=== PATIENT | male | born 1960 | race Caucasian/White ===

== ENCOUNTER 2017-01-17 10:30 | Inpatient (IN) | payer OTHER ==
--- NOTE | 2016-12-23 13:13 | PAT Medication Instructions ---
Service Date Dec 23, 2016. Current Home Medication List Aspirin (Aspir-81), 1 TAB PO DAILY Cetirizine (Zyrtec), 10 MG PO DAILY Ibuprofen (Ibuprofen), 4 TABS PO Q6H Multivitamin (Multivitamin), 1 TAB PO DAILY Medication Instructions For Your Scheduled Surgery - Hold the following medications 10 days prior to surgery per surgeon's instructions: Ibuprofen (Ibuprofen), 4 TABS PO Q6H - Hold the following medications the morning of surgery: Cetirizine (Zyrtec), 10 MG PO DAILY Multivitamin (Multivitamin), 1 TAB PO DAILY - Take the following medications the morning of surgery with a sip of water OTHERWISE NOTHING TO EAT OR DRINK AFTER MIDNIGHT: Aspirin (Aspir-81), 1 TAB PO DAILY If you have any questions please call us at [phone] or [phone] or [phone]
[2016-12-23 13:36] LABS: BASO % 0.1 %; BASO ABS # 0.01 K/uL (0-0.2); COMPLETE YES; HEMATOCRIT 44.8 % (42-52); IG% 1.6 %; LYMPH % 30.3 %; LYMPH ABS # 2.47 K/uL (1.2-3.4); MEAN CELL VOLUME 89.4 fL (80-100); MEAN CORPUSCULAR HEMOGLOBIN 30.9 pg (25-34); MEAN CORPUSCULAR HGB CONC 34.6 g/dl (32-36); MEAN PLATELET VOLUME 9.8 fL (7.4-10.4); MONO % 5.3 %; NEUT % 62.7 %; PLATELET COUNT 199 K/uL (130-400); RED BLOOD COUNT 5.01 M/uL (4.7-6.1); WHITE BLOOD COUNT 8.15 K/uL (4.8-10.8)
[2016-12-23 13:47] LABS: PARTIAL THROMBOPLASTIN RATIO 1.1; PROTHROMBIN TIME (PATIENT) 10.6 SECONDS (9.0-12.0)
--- NOTE | 2016-12-23 13:48 | DIAGNOSTIC IMAGING REPORT ---
CHEST 2 VIEWS ROUTINE HISTORY: Preop. COMPARISON: None. FINDINGS: Low lung volumes. The lungs are clear. Cardiac silhouette is normal in size. No pleural effusions. No pneumothorax. IMPRESSION: No acute process. Electronically signed by: Denis Cooper M.D. 12/23/2016 1:47 PM Dictated Date/Time: 12/23/2016 1:43 PM
[2016-12-23 14:08] LABS: BLOOD UREA NITROGEN 20 mg/dl (7-18); BUN/CREATININE RATIO 19.8 (10-20); C-REACTIVE PROTEIN 0.37 mg/dl (0-0.29); CALCIUM 9.7 mg/dl (8.5-10.1); CARBON DIOXIDE 27 mmol/L (21-32); CHLORIDE 105 mmol/L (98-107); GLUCOSE 111 mg/dl (70-99); POTASSIUM 3.9 mmol/L (3.5-5.1); SODIUM 141 mmol/L (136-145)
[2016-12-23 16:35] VITALS: BMI 39.0
--- NOTE | 2017-01-10 08:23 | HISTORY & PHYSICAL EXAMINATION ---
DATE OF ADMISSION: 01/17/2017 CHIEF COMPLAINT: Left knee pain after previous high tibial osteotomy. HISTORY OF PRESENT ILLNESS: The patient is a 57-year-old gentleman who is now a little over 2 years out from right partial knee replacement who presents for surgical treatment of his left knee. He has had a long history of left knee problems as well. He had a high tibial osteotomy done by Dr. Sparks about 5 years ago. Really has not helped him too much. He has been treated with steroid shots and viscosupplementation without much relief. Pain has become more debilitating. His pain is constant. The more he walks, the more it hurts. He would like to have his left knee replaced. PAST MEDICAL HISTORY: 1. Sleep apnea with CPAP machine. 2. Obesity with BMI of 39. 3. Arthritis. PAST SURGICAL HISTORY: Include: 1. High tibial osteotomy 5 years ago. 2. Vasectomy. 3. Tonsillectomy. 4. Right partial knee replacement 2 years ago on 10/04/2016. ALLERGIES: None. CURRENT MEDICINES: Include: 1. Aspirin 81 mg a day. 2. Ibuprofen. 3. Zyrtec. 4. Vitamin C supplement. SOCIAL HISTORY: A 57-year-old male. 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 He is . Two drinks per week. He does not smoke. FAMILY HISTORY: Significant for heart disease and diabetes. REVIEW OF SYSTEMS: Negative for diabetes, neurologic problems, vascular problems, bleeding disorders. Denies any chest pain, no shortness of breath. No history of DVT or PE. PHYSICAL EXAMINATION: GENERAL: Physical examination reveals a healthy, pleasant, middle-aged male. He looks to be in good health. HEAD, EYES, EARS, NOSE, AND THROAT EXAMINATION: Benign. NECK: Supple. No lymphadenopathy. LUNGS: Clear to auscultation. HEART: Regular rate and rhythm. ABDOMEN: Soft, nontender, nondistended. EXTREMITY EXAMINATION: Grossly neurovascularly intact except as follows: Examination of the left knee reveals patient walks independently. He does limp on the left side. He has got a well-healed incision on the medial side of his knee. He has got some bony hypertrophy medially. Range of motion is 5-120. Good straight leg raise. No pain with hip motion. X-RAYS: X-rays of the left knee were reviewed. It shows advanced left knee medial compartment DJD. He has got a high tibial osteotomy with a medial plate which is well healed. ASSESSMENT: A 57-year-old gentleman a little over 2 years out from a right partial knee replacement with advanced left knee degenerative joint disease after previous high tibial osteotomy. He has failed conservative treatment and would like to have his left knee replaced. PLAN: We are going to take him to the operating room and do a left total knee replacement. We will have to do some hardware removal from his high tibial osteotomy. The risks and benefits of this procedure were explained to the patient including but not limited to DVT, PE, , infection, neurological injury, vascular injury, bleeding problem, pain, limited range of motion, stiffness, failure to relieve his symptoms, incomplete relief of symptoms, need for further surgery in the future, fracture, leg length inequality, nerve palsy, persistent pain, etc. The patient understands and desires to proceed. Informed consent was obtained. We will have to have universal hardware removal tray available. Will likely put some vancomycin in the cement due to his previous surgeries. He is planning to be discharged to home using [facility] home health program. I will see him back 2 weeks postop.
[2017-01-17] VITALS (7 sets, daily range): BP systolic 104–155; BP diastolic 64–95; PULSE 66–84; TEMP 36.5–37; O2SAT 95–99; Ht 182.9 cm; Wt 130.4 kg
[~2017-01-17] VITALS: Ht 182.9 cm; Wt 130.4 kg
[~2017-01-17 10:30] MED LIST: ACETAMINOPHEN 500 MG TAB PO SCH; ASPI-232 PO; ATROPINE SULFATE 0.1 MG/ML 5ML SYR IV PRN; BUPIVACAINE 0.25% 30 ML VIAL ONE; BUPIVACAINE 0.5 % 5 MG/1 ML PF 10ML VIAL ONE; BUPIVACAINE LIPOSOME 266 MG, BUPIVACAINE/EPINEPHRINE INJ 50 ML, SODIUM CHLORIDE 0.9% PF... INFIL SCH; CEFAZOLIN 3000 MG/65 ML D5W 65 ML IV SCH; CETI10TA84 PO; EpHEDrine SULFATE INJ 50 MG/ML AMP IV PRN; FAMOTIDINE 20 MG TAB PO SCH; GABAPENTIN 300 MG CAP PO SCH; HYDROmorphone INJ 2 MG/ML SYR/VIAL IV PRN; IBUP1CAP9 PO; LACTATED RINGER'S 1000ML 1,000 ML IV SCH; LACTATED RINGER'S 1000ML IV SCH; LACTATED RINGER'S 500 ML IV SCH; METOCLOPRAMIDE HCL 10 MG TAB PO SCH; MULT-506 PO; ONDANSETRON INJ 2 MG/ML 2 ML VIAL IV PRN; PHENYLEPHRINE 100MCG/ML 5ML SYR IV PRN; SCOPOLAMINE 1.5 MG TDSY TD SCH; TRANEXAMIC ACID INJ 1,000 MG in SODIUM CHLORIDE 0.9% 100ML 100 ML IV SCH
--- NOTE | 2017-01-17 10:52 | History & Physical Bridge Note ---
H&P Re-Evaluation Bridge Note: I have examined the patient, reviewed the History & Physical and in the interval since the performance of the History & Physical I have noted the following changes of clinical significance: No changes noted
[2017-01-17] MEDS ORDERED: MIDAZOLAM HCL 1 MG/ML 2ML VIAL ONE ×2 (12:11)
[2017-01-17] MEDS ORDERED: ONDANSETRON INJ 2 MG/ML 2 ML VIAL ONE (12:11)
[2017-01-17] MEDS ORDERED: PROPOFOL IV EMULSION 10 MG/ML 20 ML VIAL IV ONE ×3 (12:11→14:29)
[2017-01-17] MEDS ORDERED: BUPIVACAINE LIPOSOME 1/3% 266 MG/20 ML VIAL INFIL ONE (12:53)
[2017-01-17] MEDS ORDERED: BACITRACIN 50000 UNIT VIAL ONE (12:53)
[2017-01-17] MEDS ORDERED: SODIUM CHLORIDE 0.9% PF 50 ML VIAL ONE (12:53)
[2017-01-17] MEDS ORDERED: BUPIVACAINE/EPINEPHRINE 0.25% 1:200,000 30 ML VIAL ONE (12:53)
[2017-01-17] MEDS ORDERED: VANCOMYCIN HCL 1000MG/20ML VIAL ONE (12:54)
[2017-01-17] MEDS ORDERED: PHENYLEPHRINE 100MCG/ML 5ML SYR ONE (13:35)
--- NOTE | 2017-01-17 15:05 | [facility] Post Operative Brief Note ---
Immediate Operative Summary Operative Date Jan 17, 2017. Pre-Operative Diagnosis Left knee DJD after previous high tibial osteotomy. Post-Operative Diagnosis Same as preoperative Procedure(s) Performed Left Total Knee Arthroplasty with Harware Removal Surgeon Edger Liner Surgeon(s) Smooth Ramesh PA-C Estimated Blood Loss 50ml Findings Left Knee DJD Fluids (cc crystalloids) 2000 cc Specimens A. Left Knee Bone and Tissue B. Removed Hardware Left Knee (screws x2) Drains None Anesthesia Spinal Complication(s) None Disposition Recovery Room / PACU
[2017-01-17] MEDS ORDERED: ZOLPIDEM TARTRATE 5 MG TAB PO PRN (15:15)
[2017-01-17] MEDS ORDERED: OXYCODONE HCL IR 5 MG TAB (IMMEDIATE RELEASE) PO PRN (15:15)
[2017-01-17] MEDS ORDERED: DiphenhydrAMINE HCL 50 MG/ML VIAL IV PRN (15:15)
[2017-01-17] MEDS ORDERED: MoRPHine SULFATE 2 MG/ML CARP IV PRN (15:15)
[2017-01-17] MEDS ORDERED: METOCLOPRAMIDE HCL INJ 5 MG/ML 2 ML VIAL IV PRN (15:15)
[2017-01-17] MEDS ORDERED: ALUMINUM/MAGNESIUM/SIMETH (MAALOX MAX) 30 ML UDC PO PRN (15:15)
[2017-01-17] MEDS ORDERED: SILVER SULFADIAZINE 1% CR 50 GM JAR EXT PRN (15:15)
[2017-01-17] MEDS ORDERED: BISACODYL 10 MG SUPP PR PRN (15:15)
[2017-01-17] MEDS ORDERED: TAMSULOSIN HCL 0.4 MG CAP PO PRN (15:15)
[2017-01-17] MEDS ORDERED: ONDANSETRON INJ 2 MG/ML 2 ML VIAL IV PRN (15:15)
[2017-01-17] MEDS ORDERED: MAGNESIUM HYDROXIDE SUSP 30 ML UDC PO PRN (15:15)
--- NOTE | 2017-01-17 15:30 | Anesthesiology Progress Note ---
Anesthesia Post Op Note Date & Time Jan 17, 2017 at 15:30 Vital Signs Pain Intensity: 0 Vital Signs Past 12 Hours Date Time Temp Pulse Resp B/P Pulse Ox O2 Delivery O2 Flow Rate FiO2 01/17/17 15:25 66 16 115/66 98 Nasal Cannula 2 01/17/17 15:15 82 16 136/65 97 Mask 10 01/17/17 15:09 36.4 81 16 145/80 97 Mask 10 01/17/17 11:16 36.7 74 18 155/95 95 Room Air Notes Mental Status: alert / awake / arousable, participated in evaluation Pt Amnestic to Procedure: Yes Nausea / Vomiting: adequately controlled Pain: adequately controlled Airway Patency, RR, SpO2: stable & adequate BP & HR: stable & adequate Hydration State: stable & adequate Anesthetic Complications: no major complications apparent
--- NOTE | 2017-01-17 15:34 | DIAGNOSTIC IMAGING REPORT ---
LEFT KNEE 1 OR 2 VIEWS ROUTINE CLINICAL HISTORY: Arthroplasty. COMPARISON: Knee radiographs October 10, 2016. FINDINGS: Alignment of the left knee arthroplasty is anatomic. There is no fracture or unexpected radiopaque foreign body. Surgical hardware from prior procedure within the medial aspect of the proximal left tibia is intact and unchanged. Skin mary are present. IMPRESSION: Expected findings following left knee arthroplasty. Electronically signed by: Jerry Grimes M.D. 01/17/2017 3:32 PM Dictated Date/Time: 01/17/2017 3:27 PM
--- NOTE | 2017-01-17 15:44 | OPERATIVE REPORT ---
DATE OF OPERATION: 01/17/2017 PREOPERATIVE DIAGNOSIS: Left knee degenerative joint disease after previous high tibial osteotomy. POSTOPERATIVE DIAGNOSIS: Same. PROCEDURE PERFORMED: 1. Left cemented posterior stabilized total knee arthroplasty. 2. Left knee hardware removal. SURGEON: Moses Wong M.D. PIPE ORGAN MECHANIC APPRENTICE: Antonio Ramesh PA-C. COMPLICATIONS: None. ESTIMATED BLOOD LOSS: 50 mL. FLUID REPLACEMENT: 2000 mL crystalloid fluid replacement. TOURNIQUET TIME: 69 minutes at 300 mmHg. ANESTHETIC: Spinal with adductor canal block. DRAINS: None. SPECIMENS: 1. Left knee sent for pathology. 2. Hardware left tibia. OPERATIVE INDICATIONS: The patient is a 57-year-old gentleman who is a little over 5 years out from a high tibial osteotomy done by Dr. Sparks. He really did not get much relief from this. We had done a partial knee replacement on him several years ago and he has done well from that. Over the past several years, he has developed increased pain and progressive discomfort in his left knee. X-rays revealed advanced arthritis. The patient elects to proceed with operative treatment. In order to do a knee replacement we did have to remove some of the hardware around his proximal tibia. OPERATIVE FINDINGS: Operative findings revealed advanced left knee DJD. He had grade 4 [id number] disease in all 3 compartments. Moderate size effusion. OPERATIVE IMPLANTS: Operative implants consisted of: 1. A Biomet Vanguard size 70 left posterior stabilized femoral component. 2. Biomet size 79 tibial tray. 3. A 12 mm posterior stabilized polyethylene insert. 4. A 34 x 8.5 all poly patella. OPERATIVE PROCEDURE: The patient taken to the operating room, identified and placed on operative table in supine position. All contact areas were appropriately padded. IV antibiotics were provided by the anesthesia team. A spinal anesthetic and adductor canal block had been provided in the holding area. Wilkins catheter was placed in sterile fashion. Left thigh tourniquet was then placed and left lower extremity was then prepped and draped in the usual sterile fashion. Left leg was elevated and exsanguinated with Esmarch and tourniquet was placed at 300 mmHg. An anterior approach of the left knee was then performed using a longitudinal incision centered over the patella and extending distally and using the previously made incision for the high tibial osteotomy. Sharp dissection was carried down through the subcutaneous tissues down to the level of the extensor mechanism. A medial parapatellar arthrotomy incision was made. Some subperiosteal dissection was carried out medially. We did strip the periosteum and soft tissues off the plate. I then used the screwdriver to remove the 2 proximal screws from the plate. The fat pad was then resected. The patella was everted and knee was flexed. The osteophytes were taken off the distal femur. The ACL and PCL were then released from the distal femur and the tibia subluxated anteriorly. The external tibial alignment jig was then placed in the anterior face of the tibia and adjusted 14 mm medially. Proximal tibial cut was made to remove about 3-4 mm of bone from the medial side. The tibia was then sized to a size 79. Attention was then drawn to the femur. The distal femur was entered with a sharp drill bit. Intramedullary canal was suctioned. A left 5 degree valgus cutting guide was placed. Distal femoral cutting block was pinned in place. Distal femoral cut was made to take an additional 3 mm of bone off the distal femur. The femur was then sized to a size 70. We did downsize this slightly. The AP cutting block was pinned parallel to the epicondylar axis, which was 5 degrees of external rotation. The anterior cut, anterior chamfer, posterior cut, posterior chamfer cuts were made. Box cutting guide was placed and adjusted slightly lateral and the box cut was made. The knee was flexed. The remnants of the medial and lateral menisci were excised. The osteophytes were taken off the posterior aspect of the femur. A trial femoral component was placed. Tibial tray was pinned in maximum external rotation and drill and stem punch were used to create defect in proximal tibia for the tibial tray. The knee was then trialed and the 12 mm insert fit most appropriately. There was just a little bit of laxity from the medial side, but I elected to accept this and was likely related to his previous deformity correction. Attention was then drawn to the patella. The patella was cleaned of all soft tissues. Patella thickness measured 24 mm in thickness and was cut down to 14. It was sized to a size 34 patella. Lug holes were drilled for a 34 patella. Lateral osteophyte was removed. Patellar button was placed. Knee was taken through range of motion and the patella tracked nicely with no thumbs test. Attention was then drawn toward placement of the permanent components. All trial components were removed. A bone plug was placed in the distal femur to limit blood loss. A double batch of Palacos G cement was mixed. I did an additional gram of vancomycin to the antibiotics due to his previous surgery. A left size 70 posterior stabilized femoral component, size 79 tibial tray, a 12 mm posterior stabilized polyethylene insert, and a 34 x 8.5 all poly patella then cemented in place. Knee was brought out into full extension until cement hardened. A final cement check was then performed. Pericapsular tissues were injected with 100 mL of a combination of 20 mL of Exparel, 30 mL of normal saline, 50 mL of 0.25% Marcaine with epinephrine. The patient did receive 1 gram of tranexamic acid. The tourniquet was then let down for final tourniquet time of 69 minutes. Hemostasis was assured with use of electrocautery. The extensor mechanism was then closed with a combination of #1 PDS suture and #1 Vicryl suture in a wxanyo-di-eykww fashion. Extensor mechanism was checked and found to be intact. The subcutaneous tissues were then closed with 2-0 Dexon suture in a buried interrupted fashion. Skin was closed skin mary. Leg was then cleaned and dried and a sterile dressing of Xeroform, 4 x 4, sterile cast padding and Heriberto bandage were applied. The patient then transferred to the recovery room in stable condition. The patient tolerated the procedure with no complications. All needle and sponge counts were correct at the end of the operation. I attest to the content of the Intraoperative Record and any orders documented therein. Any exceptions are noted below. JOE
[2017-01-17] MEDS: CHECK SCOPOLAMINE PATCH PLACEMENT SCH ×2 (16:39→23:46)
[2017-01-17] MEDS: D5W AND 1/2NSS + 20MEQ KCL 1,000 ML IV SCH ×2 (16:39→23:46)
[2017-01-17] MEDS ORDERED: INFLUENZA VIRUS QUAD VACCINE 0.5 ML SYR IM. ONE (17:45)
[2017-01-17] MEDS ORDERED: INFLUENZA ADMINISTRATION CHARGE ONE (17:45)
[2017-01-17] MEDS: FERROUS GLUCONATE 324 MG TAB PO SCH (18:03)
[2017-01-17] MEDS: KETOROLAC TROMETHAMINE 30 MG/ML VIAL IV. SCH ×2 (18:04→23:46)
[2017-01-17] MEDS: CEFAZOLIN IV 2,000 MG in DEXTROSE 5% 50ML 50 ML IV SCH (19:59)
[2017-01-17] MEDS: ACETAMINOPHEN 500 MG TAB PO SCH (19:59)
[2017-01-17] MEDS ORDERED: TRANEXAMIC ACID INJ 1,000 MG in SODIUM CHLORIDE 0.9% 100ML 100 ML IV SCH (21:00)
[2017-01-17] MEDS: ASPIRIN 325 MG ECTAB PO SCH (21:10)
[2017-01-17] MEDS: DOCUSATE SODIUM 100 MG CAP PO SCH (21:11)
[2017-01-17] MEDS: TAPENTADOL ER 50 MG TABCR PO SCH (21:14)
[2017-01-18 03:25] VITALS: BP 104/70; PULSE 72; TEMP 36.7; O2SAT 97
[2017-01-18] MEDS: CEFAZOLIN IV 2,000 MG in DEXTROSE 5% 50ML 50 ML IV SCH (04:50)
[2017-01-18] MEDS: D5W AND 1/2NSS + 20MEQ KCL 1,000 ML IV SCH ×2 (06:07→13:01)
[2017-01-18 06:11] LABS: HEMATOCRIT 40.5 % (42-52); MEAN CELL VOLUME 91.8 fL (80-100); MEAN CORPUSCULAR HEMOGLOBIN 31.5 pg (25-34); MEAN CORPUSCULAR HGB CONC 34.3 g/dl (32-36); MEAN PLATELET VOLUME 10.6 fL (7.4-10.4); PLATELET COUNT 173 K/uL (130-400); RED BLOOD COUNT 4.41 M/uL (4.7-6.1); WHITE BLOOD COUNT 12.99 K/uL (4.8-10.8)
[2017-01-18] MEDS: ACETAMINOPHEN 500 MG TAB PO SCH ×3 (06:23→21:38)
[2017-01-18] MEDS: KETOROLAC TROMETHAMINE 30 MG/ML VIAL IV. SCH ×4 (06:23→23:00)
[2017-01-18 06:47] LABS: BUN/CREATININE RATIO 11.2 (10-20); CALCIUM 8.6 mg/dl (8.5-10.1); CREATININE 1.2 mg/dl (0.60-1.40); POTASSIUM 4.1 mmol/L (3.5-5.1)
[2017-01-18] MEDS: CHECK SCOPOLAMINE PATCH PLACEMENT SCH ×3 (08:00→22:07)
[2017-01-18 08:04] VITALS: BP 107/71; PULSE 81; TEMP 36.9; O2SAT 94
[2017-01-18] MEDS ORDERED: MORP15TA19 PO (08:35)
[2017-01-18] MEDS ORDERED: OXYC-57 PO (08:35)
[2017-01-18] MEDS ORDERED: ASPEC325 PO (08:35)
[2017-01-18] MEDS: ASPIRIN 325 MG ECTAB PO SCH ×2 (08:49→20:25)
[2017-01-18] MEDS: FERROUS GLUCONATE 324 MG TAB PO SCH ×3 (08:49→18:17)
[2017-01-18] MEDS: DOCUSATE SODIUM 100 MG CAP PO SCH ×2 (08:49→20:25)
[2017-01-18] MEDS: MULTIVITAMIN TAB PO SCH (08:50)
[2017-01-18] MEDS: TAPENTADOL ER 50 MG TABCR PO SCH ×2 (08:50→20:26)
[2017-01-18] MEDS: PANTOprazole SOD 40 MG TAB PO SCH (08:51)
[2017-01-18] MEDS: CETIRIZINE HCL 10 MG TAB PO SCH (08:51)
[2017-01-18] MEDS ORDERED: MULTIVITAMIN TAB PO SCH (09:00)
--- NOTE | 2017-01-18 09:46 | PROGRESS NOTE ---
DATE: 01/18/2017 SUBJECTIVE: A 57-year-old gentleman postop day #1 from a left knee hardware removal and total knee replacement. He is doing well. Pain is controlled. Did have a pretty good night. No chest pain or shortness of breath. Not feeling dizzy or lightheaded. OBJECTIVE: VITAL SIGNS: Temperature 36.7. Vital signs stable. GENERAL: Reveals a healthy, pleasant, middle-aged male. He is lying in bed, looks comfortable. LUNGS: Clear to auscultation. HEART: Regular rate and rhythm. ABDOMEN: Soft, nontender, nondistended. EXTREMITIES: Grossly neurovascularly intact except as follows: Examination of the left lower extremity reveals the dressing in place. It has been reenforced. No obvious blood visible. He can dorsiflex and plantarflex his foot appropriately. He is neurologically intact. LABORATORY DATA: Hemoglobin 13.9, hematocrit 40.5. White cell count 4.99. Electrolytes are stable. ASSESSMENT: A 57-year-old gentleman postop day #1 from a left knee replacement and hardware removal, doing well. Pain is controlled. He is neurologically intact. PLAN: 1. DVT prophylaxis including thigh-high TEDs, SCDs, and aspirin twice a day. 2. PT/OT. Weightbearing as tolerated. Left total knee protocol. 3. Pain control. Doing well with current pain regimen. 4. Disposition: Plan to discharge to home with some home health, likely once adequately recovered.
[2017-01-18 11:29] VITALS: BP 120/75; PULSE 81; TEMP 36.9; O2SAT 98
[2017-01-18 15:35] VITALS: BP 133/76; PULSE 107; TEMP 36.9; O2SAT 96
[2017-01-18 23:20] VITALS: BP 131/80; PULSE 93; TEMP 37.4; O2SAT 95
[2017-01-19] MEDS: KETOROLAC TROMETHAMINE 30 MG/ML VIAL IV. SCH (06:02)
[2017-01-19] MEDS: ACETAMINOPHEN 500 MG TAB PO SCH (06:02)
[2017-01-19 06:56] VITALS: BP 121/81; PULSE 69; TEMP 36.6; O2SAT 100
--- NOTE | 2017-01-19 08:01 | Discharge Instructions ---
Discharge Instructions Date of Service Jan 19, 2017. Admission Reason for Admission: Left Knee Degenerative Joint Disease; Painful Hard Discharge Discharge Diagnosis / Problem: Left Knee Replacement Discharge Goals Goal(s): Decrease discomfort, Improve function, Increase independence, Improve disease control, Therapeutic intervention Activity Recommendations Activity Limitations: per Instructions/Follow-up section Weightbearing Status: Left weightbearing . Instructions / Follow-Up Instructions / Follow-Up ACTIVITY RECOMMENDATIONS: Physical Therapy: * You will go to physical therapy three times each week for four to six weeks after your surgery in order to regain your knee range of motion and to retrain your knee to work properly. * It is just as important to make sure you are getting your knee perfectly straight as it is to regain your knee bend. * Taking a pain pill an hour before therapy can help you have a more productive and comfortable therapy session. Home Exercise: * You were shown a series of exercises (heel props, heel slides, etc.) in the hospital. Do these exercises three to four times each day including the exercises you were shown in physical therapy. Walking: * Get up and walk several times each day. For the first four weeks, try not to stand or walk for more than one hour at a time. If you do stand or walk for more than one hour, you will not hurt anything, but your knee and leg will likely swell. * As you feel comfortable, you may change from the walker or crutches to a cane and then to independent walking. MEDICATIONS: New Medicine: * You will likely be taking one or more of these medications: 1. MS Contin - A long-acting pain medication. Take 1 tablet twice a day for the first ten days to decrease your baseline level of pain. 2. Percocet - A quick and shorter-acting pain medication. Take one to two tablets every four to six hours to lessen your pain. 3. Aspirin - Thins your blood to lessen the chance of forming a blood clot. * The most common side effects of pain medicine and iron are nausea and constipation. If nausea or constipation is too much of a problem or if you have any questions about your new medicines or doses, call [facility] at [phone]. We will try to help you manage these issues. VERY IMPORTANT TO READ AND REVIEW" Pain: * The immediate post-operative period after knee replacement surgery is often quite painful. * You are given a prescription for pain medicine. You should take it, as directed, when you need it, especially before physical therapy and before going to bed. Pain that interferes with sleep is very common and can last several months. * You will likely need pain medicine for the first four to six weeks. It will not stop all of the pain. The pain will lessen and as you feel better, you may change to milder pain medicine such as Tylenol. * The most common side effects of pain medicine are nausea and constipation, so don't take more than you need. SPECIAL CARE INSTRUCTIONS: TEDs/Elastic Stockings: * The white elastic stockings help limit swelling and prevent blood clots from forming in your legs. The more you wear them, the more they work. * Wear them for six weeks after knee replacement surgery and four weeks after partial knee replacement. Prevention of Infection: * Take antibiotics one hour before any dental cleaning, dental work, urological procedure, gastrointestinal procedure or any invasive surgery in order to prevent your new joint from getting infected. * You may get the antibiotics from the doctor performing the procedure or you may call our office at before and we will call in a prescription to the pharmacy of your choice. Things to Watch For: * Drainage from the incision site that occurs more than one week after your surgery. * Severely increased knee/leg pain or swelling. * Increased redness at the incision site. * Fever above 102 degrees Fahrenheit. * Unusual chest pain or shortness of breath. * Unusual pain or burning with urination. Call [facility] at with any of the above problems or if you have any questions about your medicines or recovery. FOLLOW UP VISIT: Make an appointment to see your doctor for approximately two weeks after surgery for a progress check and staple removal by calling the office at . Current Hospital Diet Patient's current hospital diet: Regular Diet Discharge Diet Recommended Diet: Regular Diet Procedures Procedures Performed: Left Total Knee Arthroplasty with Harware Removal Pending Studies Studies pending at discharge: no Medical Emergencies . Who to Call and When: Medical Emergencies: If at any time you feel your situation is an emergency, please call [phone] immediately. . Non-Emergent Contact Non-Emergency issues call your: Surgeon . "Provider Documentation" section prepared by Moses Wong. VTE Core Measure Inpt VTE Proph given/why not?: Other Anticoagulation, T.E.D. Stockings, SCD's
[2017-01-19] MEDS: FERROUS GLUCONATE 324 MG TAB PO SCH (08:21)
[2017-01-19] MEDS: TAPENTADOL ER 50 MG TABCR PO SCH (08:21)
[2017-01-19] MEDS: ASPIRIN 325 MG ECTAB PO SCH (08:22)
[2017-01-19] MEDS: DOCUSATE SODIUM 100 MG CAP PO SCH (08:22)
[2017-01-19] MEDS: PANTOprazole SOD 40 MG TAB PO SCH (08:23)
[2017-01-19] MEDS: MULTIVITAMIN TAB PO SCH (08:23)
[2017-01-19] MEDS: CETIRIZINE HCL 10 MG TAB PO SCH (08:23)
--- NOTE | 2017-01-19 08:28 | PROGRESS NOTE ---
DATE: 01/19/2017 SUBJECTIVE: A 57-year-old gentleman postop day #2 from a left total knee replacement and hardware removal. He is doing pretty well. A little bit stiffer this morning. Pain is controlled. No chest pain or shortness of breath. OBJECTIVE: VITAL SIGNS: Temperature 36.6. Vital signs are stable. GENERAL: Reveals a healthy, pleasant, middle-aged male. I had to awake him this morning. LUNGS: Clear to auscultation. HEART: Regular rate and rhythm. ABDOMEN: Soft, nontender and nondistended. EXTREMITIES: Grossly neurovascularly intact except as follows: Examination of the left lower extremity reveals the leg to be well-aligned. Dressing is clean, dry and intact. He can dorsiflex and plantarflex his foot appropriately. He is neurologically intact. ASSESSMENT: A 57-year-old gentleman postop day #2 from a left knee hardware removal and total knee replacement, doing well. The pain is controlled. PLAN: 1. DVT prophylaxis including thigh TEDs, SCDs and aspirin twice a day. 2. PT/OT. Weightbearing as tolerated. Left total knee protocol. 3. Pain control, doing pretty well with current pain regimen. 4. Disposition: Plan to discharge to home after therapy today. JOE
[2017-01-19 08:53] VITALS: BP 121/81; PULSE 69; TEMP 36.6; O2SAT 100
--- NOTE | 2017-01-24 17:26 | DISCHARGE SUMMARY ---
ADMITTING PHYSICIAN AND SURGEON: Dr. Wong. ADMITTING DIAGNOSIS: Left knee degenerative joint disease after previous high tibial osteotomy. PROCEDURES PERFORMED: 1. Left total knee arthroplasty. 2. Left knee hardware removal. SECONDARY DIAGNOSES: Sleep apnea, obesity, arthritis. CONSULTS: None obtained. HISTORY AND PHYSICAL EXAMINATION: Well documented in the patient's chart. HOSPITAL COURSE: The patient was admitted on 01/17/2017 underwent hardware removal and total knee arthroplasty, tolerated the procedure well. There were no complications. He was transferred to the PACU postoperatively and later to the orthopedic floor for further care. He was given Ancef for antibiotic prophylaxis, CANDACE stockings, SCDs and aspirin for DVT prophylaxis. Hemoglobin, hematocrit and vital signs were monitored during his hospital stay and remained stable, did not require any blood transfusions. There were no complications. By postoperative day 2, he was tolerating a general diet, pain was controlled with oral pain medicine. He was participating in physical therapy and had no signs or symptoms of deep vein thrombosis. On postop day 2, he was discharged home in good condition, set up with home health services. He was given printed discharge instructions including new prescriptions for aspirin 325 mg b.i.d., MS Contin and Percocet. Continue his home medications with the exception of his home dose of aspirin which was changed. Continue physical therapy, weightbearing as tolerated, CANDACE stockings and follow up in 10-12 days or sooner if there are problems or concerns.
== END 2017-01-19 11:55 | disposition home or self-care (01) | DRG 470 ==
LOC: ENRESERVTM → ENRESERVDT → C.ACU 10:30 → C.3E 10:53
PROVIDERS: ADMIT Orthopaedic Surgery Sports Medicine; ATTEND Orthopaedic Surgery Sports Medicine
PROC: 0SRD0J9 Replacement of Left Knee Joint with Synthetic Substitute, Cemented, Open Approach (ICD-10-PCS; principal; 2017-01-17 12:30)
PROC: 0SPD04Z Removal of Internal Fixation Device from Left Knee Joint, Open Approach (ICD-10-PCS; principal; 2017-01-17 12:30)
DX: M17.12 Unilateral primary osteoarthritis, left knee (principal); G47.30 Sleep apnea, unspecified; E66.9 Obesity, unspecified; Z68.39 Body mass index [BMI] 39.0-39.9, adult; Z99.89 Dependence on other enabling machines and devices; Z96.651 Presence of right artificial knee joint; Z23 Encounter for immunization; Z79.82 Long term (current) use of aspirin; Z79.899 Other long term (current) drug therapy

== ENCOUNTER → 2017-06-15 | Outpatient (CLI) | payer OTHER ==
[~2017-06-15] MED LIST changes: -ACETAMINOPHEN 500 MG TAB PO SCH; +ASPEC325 PO; -ASPI-232 PO; -ATROPINE SULFATE 0.1 MG/ML 5ML SYR IV PRN; -BUPIVACAINE 0.25% 30 ML VIAL ONE; -BUPIVACAINE 0.5 % 5 MG/1 ML PF 10ML VIAL ONE; -BUPIVACAINE LIPOSOME 266 MG, BUPIVACAINE/EPINEPHRINE INJ 50 ML, SODIUM CHLORIDE 0.9% PF... INFIL SCH; -CEFAZOLIN 3000 MG/65 ML D5W 65 ML IV SCH; -EpHEDrine SULFATE INJ 50 MG/ML AMP IV PRN; -FAMOTIDINE 20 MG TAB PO SCH; -GABAPENTIN 300 MG CAP PO SCH; -HYDROmorphone INJ 2 MG/ML SYR/VIAL IV PRN; -LACTATED RINGER'S 1000ML 1,000 ML IV SCH; -LACTATED RINGER'S 1000ML IV SCH; -LACTATED RINGER'S 500 ML IV SCH; -METOCLOPRAMIDE HCL 10 MG TAB PO SCH; -ONDANSETRON INJ 2 MG/ML 2 ML VIAL IV PRN; -PHENYLEPHRINE 100MCG/ML 5ML SYR IV PRN; -SCOPOLAMINE 1.5 MG TDSY TD SCH; -TRANEXAMIC ACID INJ 1,000 MG in SODIUM CHLORIDE 0.9% 100ML 100 ML IV SCH
--- NOTE | 2017-06-23 15:06 | POLYSOMNOGRAPH REPORT ---
REFERRING PERSON: Rachael Read MD CELL TUBER MACHINE: ____. Mr. Bruce is a 57-year-old male sent for a CPAP titration study. He has had trouble with mask leak at home. This test is to determine his new pressure needs for 2017. His [place] sleepiness scale score on the evening of this study is unknown. BMI is 37.07. This titration study will begin on a CPAP pressure of 8. Following the technical and digital specifications of the [place] [employer] ([employer]) a standard diagnostic polysomnogram was performed monitoring EEG, EOG, EMG (chin and leg deviations), oxygen saturation, body position, digital video, respiratory effort and airflow. The sleep Stage and event scoring was based on the AASM Manual for the Scoring of Sleep and Associated Events 2007 edition. Apneas are defined as a drop in the peak thermal sensor excursion by >90% of baseline for at least 10 seconds. Hypopneas were scored using the 4% oxygen desaturation rule (4A-[employer]) and a decrease in the nasal pressure excursions by >30% of baseline for at least 10 seconds. Respiratory effort-related arousal (RERA's) is defined as a sequence of breaths lasting at least 10 seconds characterized by increasing respiratory effort or flattening of the nasal pressure waveform leading to an arousal from sleep when the sequence of breaths does not meet criteria for an apnea or hypopnea. Apnea Hypopnea index (AHI) is defined as the number of apneas and hypopneas occurring in an hour of sleep. Respiratory disturbance index (RDI) is defined as the number of apneas, hypopneas, and RERA's occurring in an hour of sleep. Mr. Bruce's total sleep period time was 454.5 minutes. Total sleep time was 442.5 minutes. Sleep efficiency was 94%. Latency to sleep onset was 17.5 minutes with wake after sleep onset was 12 minutes. Total non-REM sleep time was 286.5 minutes. He spent 3% of that time in N1 sleep, 62% in N2 sleep and no time in N3 sleep. This is abnormal non-REM sleep architecture with a propensity for superficial sleep. REM latency was short at 34.5 minutes. Total REM sleep time was 156 minutes or 35% of total sleep time. This suggests REM rebound. There were 55 cortical arousals from sleep, 37 of these arousals were spontaneous, 16 were due to periodic limb movements of sleep and 2 were due to snoring. There were 247 periodic limb movements noted on this test. Limb movement index was 33.5. Limb movement with arousal index was 2.2. There were no central obstructive or mixed apneas on this test. There were 24 hypopneas and 2 RERA. Apnea-hypopnea index on this titration was normal at 3.3. 161 snoring events were recorded. Total sleep time with snoring was 1%. Mean saturation was 92% with desaturations to 71%. Saturations were less than 89 for only 18.9 minutes of testing time. There was no cardiac ectopy noted on this study. Heart rates ranged from a low of 54 beats per minute to a high of 127 beats per minute briefly. As stated above, this was a titration study. Mr. Bruce used a ResMed F20 AirFit full face mask for the titration. He was titrated from a CPAP pressure of 8 to a CPAP pressure of 15 over the course of the night. Increasing pressures were needed to prevent arousals and hypopneas. He was observed on a pressure of 15 for 82.4 minutes of sleep time. 25.5 of those minutes were spent in supine REM sleep. AHI and RDI on this pressure were both 3.6. Saturations were less than 89% for 0.5 minutes of recorded time. IMPRESSION AND PLAN: Successful CPAP titration study in this patient with known obstructive sleep apnea. He appears to do well with a ResMed AirFit F20 full facemask at a pressure of 15.
== END | disposition home or self-care (01) ==
LOC: C.NEUR 21:00
PROVIDERS: ATTEND Family Medicine
DX: G47.33 Obstructive sleep apnea (adult) (pediatric) (principal)